=== PATIENT | male | born 1990 | race Caucasian/White ===

== ENCOUNTER 2022-08-21 14:43 | Emergency (ER) | payer OTHER ==
[2022-08-21] MEDS: Diphtheria,Pertussis(Acell),Tetanus Vaccine 0.5 ML Syringe IM ONE (15:11)
== END 2022-08-21 15:30 | disposition home or self-care (01) ==
LOC: KA.ED 14:43
DX: S61.402A Unspecified open wound of left hand, initial encounter (principal); S60.512A Abrasion of left hand, initial encounter; F17.210 Nicotine dependence, cigarettes, uncomplicated; Z23 Encounter for immunization; Y92.69 Other specified industrial and construction area as the place of occurrence of the external cause
CPT/HCPCS: 73120-LT; 90471; 90715; 99283; 99283-25